=== PATIENT | female | born 1990 | race Two or more races ===

== ENCOUNTER 2019-02-28 12:16 | Emergency (ER) | payer OTHER ==
[~2019-02-28] VITALS: Ht 157.5 cm; Wt 75.3 kg
== END 2019-02-28 14:09 | disposition home or self-care (01) ==
LOC: ER 12:16
DX: G56.01 Carpal tunnel syndrome, right upper limb (principal)

== ENCOUNTER 2021-07-25 16:44 | Emergency (ER) | payer OTHER ==
[~2021-07-25] VITALS: Ht 157.5 cm; Wt 78.0 kg
[2021-07-25] MEDS ORDERED: DICLOFENAC SODI75 MG PO (17:52)
[2021-07-25] MEDS ORDERED: NORFLEX100MG PO (17:52)
== END 2021-07-25 18:04 | disposition home or self-care (01) ==
LOC: ER 16:44
DX: M62.830 Muscle spasm of back (principal); W18.39XA Other fall on same level, initial encounter; Y93.89 Activity, other specified; Y92.89 Other specified places as the place of occurrence of the external cause